=== PATIENT | male | born 1960 | race Caucasian/White ===

== ENCOUNTER 2019-08-01 05:55 | Inpatient (IN) | payer OTHER ==
[~2019-08-01] VITALS: Ht 175.3 cm; Wt 116.6 kg
[2019-08-01] MEDS ORDERED: fentaNYL PF VIAL 100 MCG/2 ML VIAL IV ONE (06:30)
[2019-08-01] MEDS ORDERED: IV NORMAL SALINE 1000ML BAG 1,000 ML IV ONE (06:30)
[2019-08-01] MEDS ORDERED: ONDANSETRON PF 4 MG/2 ML VIAL. IV ONE (06:30)
[2019-08-01 06:37] LABS: BASO # 0.1 x10^3/uL (0.0-0.2); BASO % 1 % (0-3); EOS # 0.3 x10^3/uL (0.0-0.7); EOS % 4 % (0-3); HEMATOCRIT 48.6 % (39.0-53.0); HEMOGLOBIN 17.2 g/dL (13.0-17.5); LYMPH # 1.3 x10^3/uL (1.0-4.8); LYMPH % 17 % (24-48); MEAN CORPUSCULAR HEMOGLOBIN 35 pg (25-35); MEAN CORPUSCULAR HGB CONC 35 g/dL (31-37); MEAN CORPUSCULAR VOLUME 100 fL (79-100); MONO # 0.7 x10^3/uL (0.0-1.1); MONO % 9 % (0-9); NEUT # 5.2 x10^3/uL (1.8-7.7); NEUT % 68 % (31-73); PLATELET COUNT 198 x10^3/uL (140-400); RED BLOOD COUNT 4.85 x10^6/uL (4.30-5.70); RED CELL DISTRIBUTION WIDTH 13.2 % (11.5-14.5); WHITE BLOOD COUNT 7.6 x10^3/uL (4.0-11.0)
[2019-08-01 06:38] LABS: BILIRUBIN,URINE NEGATIVE (NEG); CLARITY,URINE CLEAR; COLOR,URINE YELLOW; NITRITE,URINE NEGATIVE (NEG); PROTEIN,URINE NEGATIVE (NEG-TRACE)
[2019-08-01 06:47] LABS: BACTERIA,URINE FEW /HPF (0-FEW); RBC,URINE 0 /HPF (0-2); SQUAMOUS EPITHELIAL CELL,UR OCC /LPF; WBC,URINE OCC /HPF (0-4)
--- NOTE | 2019-08-01 06:53 | PHYS DOC ---
Past Medical History Past Medical History: GERD, Hypertension Past Surgical History: Other Additional Past Surgical Histo: 4 Colonoscopies, Left rotator cuff repair Alcohol Use: Occasionally Drug Use: None Adult General Chief Complaint Chief Complaint: CHEST PAIN-CARDIAC NATURE HPI HPI Patient is a 59 year old male presenting with chief complaint of upper abdominal pain onset about 3 hours after eating had to lay down there was a few hours still having an somewhat although it is a little better just feeling early satiety like he just can't eat he also wants to drink alcohol this weekend bec ause it is a race [employer] weekend he just does not feel like doing that that is unusual for him he drinks 4 drinks a day for times a week more on the weekends no surgeries he also feels a lump in his upper abdominal area no chest pain no chest pain with exertion Review of Systems Review of Systems Constitutional: Denies fever or chills [] Eyes: Denies change in visual acuity, redness, or eye pain [] HENT: Denies nasal congestion or sore throat [] Respiratory: Denies cough or shortness of breath [] Musculoskeletal: Denies back pain or joint pain [] Integument: Denies rash or skin lesions [] Neurologic: Denies headache, focal weakness or sensory changes [] Endocrine: Denies polyuria or polydipsia [] All other systems were reviewed and found to be within normal limits, except as documented in this note. Current Medications Current Medications Current Medications Medications (Trade) Dose Ordered Sig/[facility] Start Time Stop Time Status Last Admin Dose Admin Fentanyl Citrate (Fentanyl 2ml Vial) 50 mcg 1X ONCE 08/01/19 06:30 08/01/19 06:31 DC 08/01/19 06:47 50 MCG Ondansetron HCl (Zofran) 4 mg 1X ONCE 08/01/19 06:30 08/01/19 06:31 DC 08/01/19 06:46 4 MG Sodium Chloride 1,000 ml @ 1,000 mls/hr 1X ONCE 08/01/19 06:30 08/01/19 07:29 DC 08/01/19 06:47 1,000 MLS/HR Allergies Allergies Allergies Coded Allergies Type Severity Reaction Last Updated Verified No Known Drug Allergies 08/01/19 No Physical Exam Physical Exam Constitutional: Well developed, well nourished, no acute distress, non-toxic appearance. [] HENT: Normocephalic, atraumatic, bilateral external ears normal, oropharynx moist, no oral exudates, nose normal. [] Eyes: PERRLA, EOMI, conjunctiva normal, no discharge. [] Neck: Normal range of motion, no tenderness, supple, no stridor. [] Cardiovascular:Heart rate regular rhythm, no murmur [] Lungs & Thorax: Bilateral breath sounds clear to auscultation [] Abdomen: Bowel sounds normal, epigastric tenderness is noted mild there is a reducible ventral hernia in the epigastric area as well there is also mild right upper quadrant tenderness as well Skin: Warm, dry, no erythema, no rash. [] Back: No tenderness, no CVA tenderness. [] Extremities: No tenderness, no cyanosis, no clubbing, ROM intact, no edema. [] Neurologic: Alert and oriented X 3, normal motor function, normal sensory function, no focal deficits noted. [] Psychologic: Affect normal, judgement normal, mood normal. [] Current Patient Data Vital Signs Vital Signs Date Time Temp Pulse Resp B/P (MAP) Pulse Ox O2 Delivery O2 Flow Rate FiO2 08/01/19 10:00 92 92 Room Air 08/01/19 09:30 182/98 (126) 08/01/19 05:55 98.5 16 98.5 Lab Values Laboratory Tests Test 08/01/19 06:25 08/01/19 06:50 08/01/19 08:54 White Blood Count 7.6 x10^3/uL (4.0-11.0) Red Blood Count 4.85 x10^6/uL (4.30-5.70) Hemoglobin 17.2 g/dL (13.0-17.5) Hematocrit 48.6 % (39.0-53.0) Mean Corpuscular Volume 100 fL (79-100) Mean Corpuscular Hemoglobin 35 pg (25-35) Mean Corpuscular Hemoglobin Concent 35 g/dL (31-37) Red Cell Distribution Width 13.2 % (11.5-14.5) Platelet Count 198 x10^3/uL (140-400) Neutrophils (%) (Auto) 68 % (31-73) Lymphocytes (%) (Auto) 17 % (24-48) L Monocytes (%) (Auto) 9 % (0-9) Eosinophils (%) (Auto) 4 % (0-3) H Basophils (%) (Auto) 1 % (0-3) Neutrophils # (Auto) 5.2 x10^3/uL (1.8-7.7) Lymphocytes # (Auto) 1.3 x10^3/uL (1.0-4.8) Monocytes # (Auto) 0.7 x10^3/uL (0.0-1.1) Eosinophils # (Auto) 0.3 x10^3/uL (0.0-0.7) Basophils # (Auto) 0.1 x10^3/uL (0.0-0.2) Urine Collection Type Void Urine Color Yellow Urine Clarity Clear Urine pH 5.0 Urine Specific [place] >=1.030 Urine Protein Negative mg/dL (NEG-TRACE) Urine Glucose (UA) >=1000 mg/dL (NEG) Urine Ketones (Stick) 40 mg/dL (NEG) Urine Blood Negative (NEG) Urine Nitrite Negative (NEG) Urine Bilirubin Negative (NEG) Urine Urobilinogen Dipstick 1.0 mg/dL (0.2 mg/dL) Urine Leukocyte Esterase Negative (NEG) Urine RBC 0 /HPF (0-2) Urine WBC Occ /HPF (0-4) Urine Squamous Epithelial Cells Occ /LPF Urine Bacteria Few /HPF (0-FEW) Urine Mucus Slight /LPF Sodium Level 130 mmol/L (136-145) L Potassium Level 4.1 mmol/L (3.5-5.1) Chloride Level 96 mmol/L (98-107) L Carbon Dioxide Level 26 mmol/L (21-32) Anion Gap 8 (6-14) Blood Urea Nitrogen 13 mg/dL (8-26) Creatinine 0.7 mg/dL (0.7-1.3) Estimated GFR (Cockcroft-Gault) 115.8 BUN/Creatinine Ratio 19 (6-20) Glucose Level 254 mg/dL (70-99) H Calcium Level 9.5 mg/dL (8.5-10.1) Total Bilirubin 1.0 mg/dL (0.2-1.0) Aspartate Amino Transferase (AST) 85 U/L (15-37) H Alanine Aminotransferase (ALT) 144 U/L (16-63) H Alkaline Phosphatase 102 U/L (46-116) Troponin I Quantitative 0.037 ng/mL (0.000-0.055) 0.046 ng/mL (0.000-0.055) Total Protein 7.4 g/dL (6.4-8.2) Albumin 4.1 g/dL (3.4-5.0) Albumin/Globulin Ratio 1.2 (1.0-1.7) Lipase 101 U/L (73-393) Laboratory Tests 08/01/19 06:25 Laboratory Tests 08/01/19 06:50 EKG EKG []EKG showed a normal sinus rhythm rate of [address] changes laterally no acute ST elevation WI QTC was 430 Radiology/Procedures Radiology/Procedures [] Date of Service: 08/01/2019 10:37 AM Comparison: None available. Single AP upright portable view chest findings: Cardiomediastinal silhouette is within limits of normal. No acute infiltrates, effusion or pneumothorax is detected. The bony structures are normal. Impression: No acute cardiopulmonary process is detected. Electronically signed by: Isabel Apodaca MD (08/01/2019 11:15 AM) [facility] DICTATED and SIGNED BY: ISABEL APODACA MD DATE: 08/01/19 1115 Impressions: FINDINGS: Hepatomegaly with diffuse hepatic steatosis. The liver measures 19.0 cm in length. Gallbladder is enlarged with layering sludge. No calculi are identified. The gallbladder wall measures 2.9 mm. Right kidney is difficult to visualize and measures 12.9 cm in length. Suboptimal evaluation of the pancreas, aorta and IVC due to overlying bowel gas. No gross free fluid. IMPRESSION: Hepatomegaly with diffuse hepatic steatosis. Diffuse gallbladder/without cholelithiasis. Electronically signed by: Isabel Apodaca MD (08/01/2019 9:05 AM) [facility] DICTATED and SIGNED BY: ISABEL APODACA MD DATE: 08/01/19 0905 Course & Med Decision Making Course & Med Decision Making Pertinent Labs and Imaging studies reviewed. (See chart for details) 59-year-old male with history of hypertension and GERD, presenting with epigastric discomfort initially described as chest pain EKG was nonischemic to troponin so far are within normal range for slowly rising I think he needs a third. Ultrasound was done did show sludge and distended gallbladder with no stones still has mild tenderness in that region I consulted with Dr. Fulbright for serial troponins consideration of further right upper quadrant imaging and further evaluation. Patient is comfortable with the plan the lipase was normal patient is quite a heavy drinker overall but no obvious acute pancreatitis based on lab work. Had a easily reducible ventral hernia on clinical examination the emergency room no peritoneal signs heart score h 1 e 1 a 1 r 1 t 0 Dragon Disclaimer Dragon Disclaimer This electronic medical record was generated, in whole or in part, using a voice recognition dictation system. Departure Departure Impression: Primary Impression: Chest discomfort Disposition: ADMITTED INPATIENT Admitting Physician: ROBYN Condition: STABLE ALPHONSO DAVIS MD Aug 01, 2019 06:53
[2019-08-01 07:16] LABS: CALCIUM 9.5 mg/dL (8.5-10.1); CREATININE 0.7 mg/dL (0.7-1.3); GFR 115.8; POTASSIUM 4.1 mmol/L (3.5-5.1)
[2019-08-01 07:22] LABS: ALBUMIN 4.1 g/dL (3.4-5.0); ALBUMIN/GLOBULIN RATIO 1.2 (1.0-1.7); TOTAL PROTEIN 7.4 g/dL (6.4-8.2)
--- NOTE | 2019-08-01 09:08 | RAD ---
Exam performed: Right upper quadrant abdominal ultrasound. HISTORY: Right upper quadrant pain, cholecystitis. DATE OF SERVICE: 08/01/2019. COMPARISON: None available TECHNIQUE: Transabdominal. FINDINGS: Hepatomegaly with diffuse hepatic steatosis. The liver measures 19.0 cm in length. Gallbladder is enlarged with layering sludge. No calculi are identified. The gallbladder wall measures 2.9 mm. Right kidney is difficult to visualize and measures 12.9 cm in length. Suboptimal evaluation of the pancreas, aorta and IVC due to overlying bowel gas. No gross free fluid. IMPRESSION: Hepatomegaly with diffuse hepatic steatosis. Diffuse gallbladder/without cholelithiasis. Electronically signed by: Isabel Apodaca MD (08/01/2019 9:05 AM) [facility]
[2019-08-01] MEDS ORDERED: IV NORMAL SALINE 1000ML BAG 1,000 ML IV SCH (10:09)
[2019-08-01] MEDS ORDERED: MORPHINE SULFATE 4 MG/ML VIAL. IV PRN (10:15)
--- NOTE | 2019-08-01 10:29 | EKG ---
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
--- NOTE | 2019-08-01 10:43 | PDOC1 ---
History and Physical Date of Admission Date of Admission DATE: 08/01/19 TIME: 10:34 Identification/Chief Complaint Chief Complaint SEEN IN er 59 year old male presenting with chief complaint of upper abdominal pain onset about 3 hours after eating had to lay down there was a few hours still having an somewhat although it is a little better just feeling early satiety like he just can't eat he also wants to drink alcohol this weekend because it is a race [employer] weekend he just does not feel like doing that that is unusual for him he drinks 4 drinks a day 4 times a week more on the weekends ate cod, onion rings last night, had discomfort x 4 hrs during the night SONO C/W GB sludge and troponin i neg x 2 Past Medical History Past Medical History Past Medical History Past Medical History: GERD, Hypertension Past Surgical History: Other Additional Past Surgical Histo: 4 Colonoscopies, Left rotator cuff repair Alcohol Use: Occasionally Drug Use: None remote tobacco Retired from [employer], lives [place] [facility] Cardiovascular: Hyperlipidemia Endocrine: Diabetes Family History Family History: Hypertension Social History Smoke: Quit ALCOHOL: social Drugs: None Current Medications Current Medications Current Medications Sodium Chloride 1,000 ml @ 1,000 mls/hr 1X ONCE IV Last administered on 08/01/19at 06:47; Start 08/01/19 at 06:30; Stop 08/01/19 at 07:29; Status DC Ondansetron HCl (Zofran) 4 mg 1X ONCE IV Last administered on 08/01/19at 06:46; Start 08/01/19 at 06:30; Stop 08/01/19 at 06:31; Status DC Fentanyl Citrate (Fentanyl 2ml Vial) 50 mcg 1X ONCE IV Last administered on 1 at 06:47; Start 08/01/19 at 06:30; Stop 08/01/19 at 06:31; Status DC Morphine Sulfate (Morphine Sulfate) 4 mg PRN Q2HR PRN IV PAIN; Start 08/01/19 at 10:15; Stop 08/02/19 at 10:14 Sodium Chloride 1,000 ml @ 75 mls/hr [id number] IV ; Start 08/01/19 at 10:09; Stop 08/02/19 at 10:08 Allergies Allergies: Coded Allergies: No Known Drug Allergies (Unverified , 08/01/19) ROS Review of System Review of Systems Review of Systems Constitutional: Denies fever or chills [] Eyes: Denies change in visual acuity, redness, or eye pain [] HENT: Denies nasal congestion or sore throat [] Respiratory: Denies cough or shortness of breath [] Musculoskeletal: Denies back pain or joint pain [] Integument: Denies rash or skin lesions [] Neurologic: Denies headache, focal weakness or sensory changes [] Endocrine: Denies polyuria or polydipsia [] 14 pt systems were reviewed and found to be within normal limits, except as documented PSYCHOLOGICAL ROS: No: Anxiety, Behavioral Disorder, Concentration difficultie, Decreased libido, Depression, Disorientation, Hallucinations, Hostility, Irritablity, Memory difficulties, Mood Swings, Obsessive thoughts, Physical abuse, Sexual abuse, Sleep disturbances, Suicidal ideation, Other Hematological and Lymphatic: No: Bleeding Problems, Blood Clots, Blood Transfusions, Brusing, Night Sweats, Pallor, Swollen Lymph Nodes, Other Respiratory: No: Cough, Hemoptysis, Orthopnea, Pleuritic Pain, Shortness of breath, SOB with excertion, Sputum Changes, Stridor, Tachypnea, Wheezing, Other Cardiovascular: yes Chest Pain; No Palpitations, No Orthopnea, No Paroxysmal Noc. Dyspnea, No Edema, No Lt Headedness, No Other Gastrointestinal: Yes Other (epigastric discomfort) Physical Exam Physical Exam Physical Exam Physical Exam Constitutional: Well developed, well nourished, no acute distress, non-toxic appearance. [] HENT: Normocephalic, atraumatic, bilateral external ears normal, oropharynx moist, no oral exudates, nose normal. [] Eyes: PERRLA, EOMI, conjunctiva normal, no discharge. [] Neck: Normal range of motion, no tenderness, supple, no stridor. [] Cardiovascular:Heart rate regular rhythm, no murmur [] Lungs & Thorax: Bilateral breath sounds clear to auscultation [] Abdomen: Bowel sounds normal, epigastric tenderness is noted mild there is a reducible ventral hernia in the epigastric area as well Skin: Warm, dry, no erythema, no rash. [] Back: No tenderness, no CVA tenderness. [] Extremities: No tenderness, no cyanosis, no clubbing, ROM intact, no edema. [] Neurologic: Alert and oriented X 3, normal motor function, normal sensory function, no focal deficits noted. [] Psychologic: Affect normal, judgement normal, mood normal. [] General: Alert, Oriented X3, Cooperative, No acute distress HEENT: Atraumatic, EOMI, Mucous membr. moist/pink Lungs: Clear to auscultation, Normal air movement Heart: RRR, no thrills, no gallops, no murmurs Abdomen: Normal bowel sounds, Soft, Other (obese) Rectal Exam: not examined PELVIC: Examination not indicated Extremities: No cyanosis Neuro: Normal speech, Cranial nerves 3-12 NL Psych/Mental Status: Mental status NL, Mood NL Vitals Vitals Vital Signs Date Time Temp Pulse Resp B/P (MAP) Pulse Ox O2 Delivery O2 Flow Rate FiO2 08/01/19 09:30 86 182/98 (126) 96 Room Air 08/01/19 05:55 98.5 16 98.5 Labs Labs Laboratory Tests Test 08/01/19 06:25 08/01/19 06:50 08/01/19 08:54 White Blood Count 7.6 x10^3/uL (4.0-11.0) Red Blood Count 4.85 x10^6/uL (4.30-5.70) Hemoglobin 17.2 g/dL (13.0-17.5) Hematocrit 48.6 % (39.0-53.0) Mean Corpuscular Volume 100 fL (79-100) Mean Corpuscular Hemoglobin 35 pg (25-35) Mean Corpuscular Hemoglobin Concent 35 g/dL (31-37) Red Cell Distribution Width 13.2 % (11.5-14.5) Platelet Count 198 x10^3/uL (140-400) Neutrophils (%) (Auto) 68 % (31-73) Lymphocytes (%) (Auto) 17 % (24-48) Monocytes (%) (Auto) 9 % (0-9) Eosinophils (%) (Auto) 4 % (0-3) Basophils (%) (Auto) 1 % (0-3) Neutrophils # (Auto) 5.2 x10^3/uL (1.8-7.7) Lymphocytes # (Auto) 1.3 x10^3/uL (1.0-4.8) Monocytes # (Auto) 0.7 x10^3/uL (0.0-1.1) Eosinophils # (Auto) 0.3 x10^3/uL (0.0-0.7) Basophils # (Auto) 0.1 x10^3/uL (0.0-0.2) Urine Collection Type Void Urine Color Yellow Urine Clarity Clear Urine pH 5.0 Urine Specific [place] >=1.030 Urine Protein Negative mg/dL (NEG-TRACE) Urine Glucose (UA) >=1000 mg/dL (NEG) Urine Ketones (Stick) 40 mg/dL (NEG) Urine Blood Negative (NEG) Urine Nitrite Negative (NEG) Urine Bilirubin Negative (NEG) Urine Urobilinogen Dipstick 1.0 mg/dL (0.2 mg/dL) Urine Leukocyte Esterase Negative (NEG) Urine RBC 0 /HPF (0-2) Urine WBC Occ /HPF (0-4) Urine Squamous Epithelial Cells Occ /LPF Urine Bacteria Few /HPF (0-FEW) Urine Mucus Slight /LPF Sodium Level 130 mmol/L (136-145) Potassium Level 4.1 mmol/L (3.5-5.1) Chloride Level 96 mmol/L (98-107) Carbon Dioxide Level 26 mmol/L (21-32) Anion Gap 8 (6-14) Blood Urea Nitrogen 13 mg/dL (8-26) Creatinine 0.7 mg/dL (0.7-1.3) Estimated GFR (Cockcroft-Gault) 115.8 BUN/Creatinine Ratio 19 (6-20) Glucose Level 254 mg/dL (70-99) Calcium Level 9.5 mg/dL (8.5-10.1) Total Bilirubin 1.0 mg/dL (0.2-1.0) Aspartate Amino Transf (AST/SGOT) 85 U/L (15-37) Alanine Aminotransferase (ALT/SGPT) 144 U/L (16-63) Alkaline Phosphatase 102 U/L (46-116) Troponin I Quantitative 0.037 ng/mL (0.000-0.055) 0.046 ng/mL (0.000-0.055) Total Protein 7.4 g/dL (6.4-8.2) Albumin 4.1 g/dL (3.4-5.0) Albumin/Globulin Ratio 1.2 (1.0-1.7) Lipase 101 U/L (73-393) Laboratory Tests Test 08/01/19 06:25 08/01/19 06:50 08/01/19 08:54 White Blood Count 7.6 x10^3/uL (4.0-11.0) Red Blood Count 4.85 x10^6/uL (4.30-5.70) Hemoglobin 17.2 g/dL (13.0-17.5) Hematocrit 48.6 % (39.0-53.0) Mean Corpuscular Volume 100 fL (79-100) Mean Corpuscular Hemoglobin 35 pg (25-35) Mean Corpuscular Hemoglobin Concent 35 g/dL (31-37) Red Cell Distribution Width 13.2 % (11.5-14.5) Platelet Count 198 x10^3/uL (140-400) Neutrophils (%) (Auto) 68 % (31-73) Lymphocytes (%) (Auto) 17 % (24-48) Monocytes (%) (Auto) 9 % (0-9) Eosinophils (%) (Auto) 4 % (0-3) Basophils (%) (Auto) 1 % (0-3) Neutrophils # (Auto) 5.2 x10^3/uL (1.8-7.7) Lymphocytes # (Auto) 1.3 x10^3/uL (1.0-4.8) Monocytes # (Auto) 0.7 x10^3/uL (0.0-1.1) Eosinophils # (Auto) 0.3 x10^3/uL (0.0-0.7) Basophils # (Auto) 0.1 x10^3/uL (0.0-0.2) Urine Collection Type Void Urine Color Yellow Urine Clarity Clear Urine pH 5.0 Urine Specific [place] >=1.030 Urine Protein Negative mg/dL (NEG-TRACE) Urine Glucose (UA) >=1000 mg/dL (NEG) Urine Ketones (Stick) 40 mg/dL (NEG) Urine Blood Negative (NEG) Urine Nitrite Negative (NEG) Urine Bilirubin Negative (NEG) Urine Urobilinogen Dipstick 1.0 mg/dL (0.2 mg/dL) Urine Leukocyte Esterase Negative (NEG) Urine RBC 0 /HPF (0-2) Urine WBC Occ /HPF (0-4) Urine Squamous Epithelial Cells Occ /LPF Urine Bacteria Few /HPF (0-FEW) Urine Mucus Slight /LPF Sodium Level 130 mmol/L (136-145) Potassium Level 4.1 mmol/L (3.5-5.1) Chloride Level 96 mmol/L (98-107) Carbon Dioxide Level 26 mmol/L (21-32) Anion Gap 8 (6-14) Blood Urea Nitrogen 13 mg/dL (8-26) Creatinine 0.7 mg/dL (0.7-1.3) Estimated GFR (Cockcroft-Gault) 115.8 BUN/Creatinine Ratio 19 (6-20) Glucose Level 254 mg/dL (70-99) Calcium Level 9.5 mg/dL (8.5-10.1) Total Bilirubin 1.0 mg/dL (0.2-1.0) Aspartate Amino Transf (AST/SGOT) 85 U/L (15-37) Alanine Aminotransferase (ALT/SGPT) 144 U/L (16-63) Alkaline Phosphatase 102 U/L (46-116) Troponin I Quantitative 0.037 ng/mL (0.000-0.055) 0.046 ng/mL (0.000-0.055) Total Protein 7.4 g/dL (6.4-8.2) Albumin 4.1 g/dL (3.4-5.0) Albumin/Globulin Ratio 1.2 (1.0-1.7) Lipase 101 U/L (73-393) Images Images HISTORY: Right upper quadrant pain, cholecystitis. DATE OF SERVICE: 08/01/2019. COMPARISON: None available TECHNIQUE: Transabdominal. FINDINGS: Hepatomegaly with diffuse hepatic steatosis. The liver measures 19.0 cm in length. Gallbladder is enlarged with layering sludge. No calculi are identified. The gallbladder wall measures 2.9 mm. Right kidney is difficult to visualize and measures 12.9 cm in length. Suboptimal evaluation of the pancreas, aorta and IVC due to overlying bowel gas. No gross free fluid. IMPRESSION: Hepatomegaly with diffuse hepatic steatosis. Diffuse gallbladder/without cholelithiasis. Electronically signed by: Isabel Apodaca MD (08/01/2019 9:05 AM) [facility] VTE Prophylaxis Ordered VTE Prophylaxis Devices: Yes VTE Pharmacological Prophylaxi: Yes Assessment/Plan Assessment/Plan IMPRESSION: EPIGASTRIC/ chest discomfort Hepatomegaly with diffuse hepatic steatosis. Diffuse gallbladder/without cholelithiasis. Morbid obesity POSSIBLE GERD DIABETES alcohol abuse mild hyponatremia plan admit consult cardiology consult general surgery tele serial troponin i gi prophylaxis NPO IV FLUID SUPPORT ACCUCHECKS alcohol withdrawal precautions 56 min pt exam, chart review , > 50% of time spent with exam, chart review, pt care coordination ELVA DOUGLAS MD Aug 01, 2019 10:43
[2019-08-01] MEDS ORDERED: MAG HYDROX/ALUMINUM HYD/SIMETH 30 ML ORAL.SUSP PO PRN (10:45)
[2019-08-01] MEDS ORDERED: ONDANSETRON PF 4 MG/2 ML VIAL. IV PRN (10:45)
[2019-08-01] MEDS ORDERED: guaiFENesin ORAL 200 MG/10 ML LIQUID. PO PRN (10:45)
[2019-08-01] MEDS ORDERED: DOCUSATE SODIUM 100 MG CAPSULE. PO PRN (10:45)
[2019-08-01] MEDS ORDERED: ALBUTEROL SULFATE 2.5 MG/3 ML NEBU. NEB PRN (10:45)
[2019-08-01] MEDS ORDERED: 0.9 % SODIUM CHLORIDE 10 ML DISP.SYRIN. IV PRN (10:45)
[2019-08-01] MEDS ORDERED: ZOLPIDEM 5 MG TABLET. PO PRN (10:45)
[2019-08-01] MEDS ORDERED: ACETAMINOPHEN 325 MG TABLET. PO PRN (10:45)
[2019-08-01] MEDS ORDERED: cloNIDine HCL 0.1 MG TABLET PO PRN (10:45)
[2019-08-01 11:00] VITALS: BP 161/94
[2019-08-01] MEDS ORDERED: PANTOPRAZOLE IV PUSH 40 MG VIAL. IVP SCH (11:00)
--- NOTE | 2019-08-01 11:18 | RAD ---
Exam performed: One view chest. Indication: Discomfort Date of Service: 08/01/2019 10:37 AM Comparison: None available. Single AP upright portable view chest findings: Cardiomediastinal silhouette is within limits of normal. No acute infiltrates, effusion or pneumothorax is detected. The bony structures are normal. Impression: No acute cardiopulmonary process is detected. Electronically signed by: Isabel Apodaca MD (08/01/2019 11:15 AM) [facility] [place]
[2019-08-01] MEDS: IV NORMAL SALINE 1000ML BAG 1,000 ML IV SCH ×2 (11:31→21:18)
[2019-08-01] MEDS: ENOXAPARIN 40 MG/0.4 ML SYRINGE. SQ SCH (11:32)
[2019-08-01] MEDS ORDERED: METO-247 PO (13:26)
[2019-08-01] MEDS ORDERED: BENA40TA3 PO (13:26)
[2019-08-01] MEDS ORDERED: DEXTROSE 50% 25 GM / 50ML DISP.SYRIN. IV PRN (13:30)
[2019-08-01] MEDS: METOPROLOL SUCC 24HR ER 100 MG TAB.ER.24H. PO SCH (14:10)
--- NOTE | 2019-08-01 14:59 | RAD ---
Exam performed: CT scan of the abdomen and pelvis without contrast. Clinical Indication: Epigastric pain. Date of Service: 08/01/2019 comparison: Abdominal ultrasound from earlier today Technique: Contiguous helical acquisitions are obtained through the abdomen and pelvis without IV contrast. Sagittal and coronal reformatted images are obtained and reviewed. CT abdomen and pelvis findings: The lung bases are essentially clear. Visualized heart is normal. Atheromatous coronary calcification Lack of IV contrast limits evaluation of abdominal viscera. Hepatomegaly with diffuse hepatic steatosis. The gallbladder is distended. There are calcified calculi in the neck of the gallbladder. Note is made that no calculi by report. Present on a recent ultrasound perhaps secondary to limitation of ultrasound due to overlying bowel gas with limited evaluation of the region of neck of gallbladder suggesting inflammatory changes surrounding the neck of gallbladder. Mild splenomegaly. Pancreas appears grossly normal Both adrenal glands and bilateral kidneys are normal in size without hydronephrosis or nephrolithiasis. Aorta is normal in caliber without aneurysm. The small and large bowel loops are nondilated and unremarkable. The appendix is not clearly seen Distal ureters are nondilated. Urinary bladder is unremarkable. [Prostate gland, seminal vesicles and rectum are normal.] No free or focal fluid collections are identified. Impression: Cholelithiasis in the neck of gallbladder with suggested inflammatory changes surrounding the region of neck of gallbladder. Note is made that this is not clearly seen on recent ultrasound due to reasons mentioned above. Diffuse hepatic steatosis with hepatomegaly. Mild splenomegaly PQRS Compliance Statement: One or more of the following individualized dose reduction techniques were utilized for this examination: 1. Automated exposure control 2. Adjustment of the mA and/or kV according to patient size 3. Use of iterative reconstruction technique Electronically signed by: Isabel Apodaca MD (08/01/2019 2:55 PM) [facility]
--- NOTE | 2019-08-01 15:07 | PDOC2 ---
CARDIOLOGY CONSULT NOTE CHEIF COMPLAINT: Epigastric pain HPI: Pleasant 59 y.o man came to the hospital for mid abdominal discomfort. Denies any angina. He ate some greasy food and had what appears to be either biliary disease or pancreatitis type pain. He has had pain of GERD in the past and feels like this is not that pain. He had similar abdominal pain about 2 days ago and lost his appetite. He has no exertional angina, dyspnea, orthopnea or PND. No edema. He has a remote history of non-obstructive CAD on cath several years ago and has been treated with med tx. His last stress 4 yrs ago was wnl. Otherwise he is highly functional. PMHX: CAD HTN DM2 DLP - intolerant to statins. SOCHX: no smoking. Drinks socially No illicits Retired. FAMHX: +CAD CURRENT MEDS: Current Medications Medications (Trade) Dose Ordered Sig/Belkis Route PRN Reason Start Time Stop Time Status Last Admin Dose Admin Sodium Chloride 1,000 ml @ 1,000 mls/hr 1X ONCE IV 08/01/19 06:30 08/01/19 07:29 DC 08/01/19 06:47 Ondansetron HCl (Zofran) 4 mg 1X ONCE IV 08/01/19 06:30 08/01/19 06:31 DC 08/01/19 06:46 Fentanyl Citrate (Fentanyl 2ml Vial) 50 mcg 1X ONCE IV 08/01/19 06:30 08/01/19 06:31 DC 08/01/19 06:47 Sodium Chloride 1,000 ml @ 100 mls/hr Q10H IV 08/01/19 10:37 08/01/19 11:31 Enoxaparin Sodium (Lovenox 40mg Syringe) 40 mg DAILY SQ 08/01/19 11:00 08/01/19 11:32 Pantoprazole Sodium (PROTONIX VIAL for IV PUSH) 40 mg DAILYAC IVP 08/01/19 11:00 08/01/19 11:31 Metoprolol Succinate (Toprol Xl) 100 mg DAILY PO 08/01/19 14:00 08/01/19 14:10 Lorazepam (Ativan Inj) 0.5 mg PRN Q8HRS PRN IVP ANXIETY / AGITATION 08/01/19 14:30 08/01/19 14:27 ALLERGIES: Allergies Coded Allergies Type Severity Reaction Last Updated Verified No Known Drug Allergies 08/01/19 No ROS: negative for 07/27 systems reviewed unless otherwise noted above in HPI PHYSICAL EXAM: Vital Signs/I&O: Vital Signs Date Time Temp Pulse Resp B/P (MAP) Pulse Ox O2 Delivery O2 Flow Rate FiO2 08/01/19 14:10 79 161/94 08/01/19 12:07 96 Room Air 08/01/19 11:00 98.8 16 98.8 Physical Exam: GEN.: No apparent distress. Alert and oriented. HEENT: Head is normocephalic, atraumatic NECK: Supple. LUNGS: Clear to auscultation. HEART: RRR, S1, S2 present. Peripheral pulses intact ABDOMEN: Soft,mild mid abd tenderness. No rebound or gaurding EXTREMITIES: Without any cyanosis. NEUROLOGIC: Normal speech, normal tone PSYCHIATRIC: Normal affect, normal mood. SKIN: No ulcerations DIAGNOSTIC TESTING: Trop negative x 2 EKG unremarkable for acute findings. CT pending ASSESSMENT: 1. Non-cardiac chest pain (symptoms, EKG, labs not consistent with any cardiac issues) 2. HTN 3. DM2 4. Abdominal pain - eval ongoing PLAN: 1. No further CV recs. Ok to DC from our standpoint. F/u with PCP and primary senior product analyst in [facility]. Pls call with questions. ZENY JUSTICE MD Aug 01, 2019 15:06
[2019-08-01 15:14] VITALS: BP 154/94
[2019-08-01] MEDS: INSULIN LISPRO 300 UNITS/3 ML VIAL. SQ SCH (17:00)
[2019-08-01 19:25] VITALS: BP 154/92
[2019-08-01] MEDS: LISINOPRIL 20 MG TABLET PO SCH (21:17)
[2019-08-01 23:45] VITALS: BP 97/54
[2019-08-02 03:15] VITALS: BP 110/64
[2019-08-02 04:42] LABS: BASO % 1 % (0-3); EOS # 0.4 x10^3/uL (0.0-0.7); EOS % 8 % (0-3); HEMATOCRIT 45.1 % (39.0-53.0); HEMOGLOBIN 15.3 g/dL (13.0-17.5); LYMPH # 1.8 x10^3/uL (1.0-4.8); LYMPH % 35 % (24-48); MEAN CORPUSCULAR HEMOGLOBIN 34 pg (25-35); MEAN CORPUSCULAR HGB CONC 34 g/dL (31-37); MEAN CORPUSCULAR VOLUME 102 fL (79-100); MONO # 0.6 x10^3/uL (0.0-1.1); MONO % 13 % (0-9); NEUT # 2.2 x10^3/uL (1.8-7.7); NEUT % 43 % (31-73); PLATELET COUNT 129 x10^3/uL (140-400); RED BLOOD COUNT 4.44 x10^6/uL (4.30-5.70); RED CELL DISTRIBUTION WIDTH 13.1 % (11.5-14.5)
[2019-08-02 05:00] LABS: ALBUMIN 3.2 g/dL (3.4-5.0); ALBUMIN/GLOBULIN RATIO 0.9 (1.0-1.7); CALCIUM 8.7 mg/dL (8.5-10.1); CREATININE 0.8 mg/dL (0.7-1.3); GFR 99.3; POTASSIUM 4.2 mmol/L (3.5-5.1); TOTAL BILIRUBIN 0.8 mg/dL (0.2-1.0); TOTAL PROTEIN 6.7 g/dL (6.4-8.2)
[2019-08-02] MEDS: IV NORMAL SALINE 1000ML BAG 1,000 ML IV SCH (06:37)
[2019-08-02 07:00] VITALS: BP 147/82
[2019-08-02] MEDS: ENOXAPARIN 40 MG/0.4 ML SYRINGE. SQ SCH (09:00)
--- NOTE | 2019-08-02 09:20 | NUR ---
Pgd GI and surgery consults regarding ok to dc. Both gave ok to discharge as patient lives out of town and would rather have workup/surgery at home sine it is none emergent
--- NOTE | 2019-08-02 09:27 | PDOC3 ---
Discharge Summary Visit Information Date of Admission: Aug 01, 2019 Date of Discharge: Aug 02, 2019 Admitting Diagnosis: acute abd pain Final Diagnosis Cholelithiasis in the neck of gallbladder with suggested inflammatory changes surrounding the region of neck of gallbladder. Note is made that this is not clearly seen on recent ultrasound due to reasons mentioned above. Diffuse hepatic steatosis with hepatomegaly. EtOH abuse obesity, BMI 38 Mild splenomegaly Brief Hospital Course Allergies Allergies Coded Allergies Type Severity Reaction Last Updated Verified No Known Drug Allergies 08/01/19 No Vital Signs Vital Signs Date Time Temp Pulse Resp B/P (MAP) Pulse Ox O2 Delivery O2 Flow Rate FiO2 08/02/19 07:00 97.9 60 18 147/82 (103) 96 Room Air 97.9 Lab Results Laboratory Tests Test 08/01/19 06:25 08/01/19 06:50 08/01/19 08:54 08/01/19 11:45 White Blood Count 7.6 x10^3/uL (4.0-11.0) Red Blood Count 4.85 x10^6/uL (4.30-5.70) Hemoglobin 17.2 g/dL (13.0-17.5) Hematocrit 48.6 % (39.0-53.0) Mean Corpuscular Volume 100 fL (79-100) Mean Corpuscular Hemoglobin 35 pg (25-35) Mean Corpuscular Hemoglobin Concent 35 g/dL (31-37) Red Cell Distribution Width 13.2 % (11.5-14.5) Platelet Count 198 x10^3/uL (140-400) Neutrophils (%) (Auto) 68 % (31-73) Lymphocytes (%) (Auto) 17 % (24-48) Monocytes (%) (Auto) 9 % (0-9) Eosinophils (%) (Auto) 4 % (0-3) Basophils (%) (Auto) 1 % (0-3) Neutrophils # (Auto) 5.2 x10^3/uL (1.8-7.7) Lymphocytes # (Auto) 1.3 x10^3/uL (1.0-4.8) Monocytes # (Auto) 0.7 x10^3/uL (0.0-1.1) Eosinophils # (Auto) 0.3 x10^3/uL (0.0-0.7) Basophils # (Auto) 0.1 x10^3/uL (0.0-0.2) Urine Collection Type Void Urine Color Yellow Urine Clarity Clear Urine pH 5.0 Urine Specific Buchanan >=1.030 Urine Protein Negative mg/dL (NEG-TRACE) Urine Glucose (UA) >=1000 mg/dL (NEG) Urine Ketones (Stick) 40 mg/dL (NEG) Urine Blood Negative (NEG) Urine Nitrite Negative (NEG) Urine Bilirubin Negative (NEG) Urine Urobilinogen Dipstick 1.0 mg/dL (0.2 mg/dL) Urine Leukocyte Esterase Negative (NEG) Urine RBC 0 /HPF (0-2) Urine WBC Occ /HPF (0-4) Urine Squamous Epithelial Cells Occ /LPF Urine Bacteria Few /HPF (0-FEW) Urine Mucus Slight /LPF Sodium Level 130 mmol/L (136-145) Potassium Level 4.1 mmol/L (3.5-5.1) Chloride Level 96 mmol/L (98-107) Carbon Dioxide Level 26 mmol/L (21-32) Anion Gap 8 (6-14) Blood Urea Nitrogen 13 mg/dL (8-26) Creatinine 0.7 mg/dL (0.7-1.3) Estimated GFR (Cockcroft-Gault) 115.8 BUN/Creatinine Ratio 19 (6-20) Glucose Level 254 mg/dL (70-99) Calcium Level 9.5 mg/dL (8.5-10.1) Total Bilirubin 1.0 mg/dL (0.2-1.0) Aspartate Amino Transf (AST/SGOT) 85 U/L (15-37) Alanine Aminotransferase (ALT/SGPT) 144 U/L (16-63) Alkaline Phosphatase 102 U/L (46-116) Troponin I Quantitative 0.037 ng/mL (0.000-0.055) 0.046 ng/mL (0.000-0.055) Total Protein 7.4 g/dL (6.4-8.2) Albumin 4.1 g/dL (3.4-5.0) Albumin/Globulin Ratio 1.2 (1.0-1.7) Lipase 101 U/L (73-393) Glucose (Fingerstick) 194 mg/dL (70-99) Test 08/01/19 13:30 08/01/19 16:16 08/01/19 17:19 08/01/19 20:45 Troponin I Quantitative 0.042 ng/mL (0.000-0.055) 0.053 ng/mL (0.000-0.055) Glucose (Fingerstick) 163 mg/dL (70-99) 189 mg/dL (70-99) Test 08/02/19 04:00 08/02/19 05:00 08/02/19 08:12 White Blood Count 5.0 x10^3/uL (4.0-11.0) Red Blood Count 4.44 x10^6/uL (4.30-5.70) Hemoglobin 15.3 g/dL (13.0-17.5) Hematocrit 45.1 % (39.0-53.0) Mean Corpuscular Volume 102 fL (79-100) Mean Corpuscular Hemoglobin 34 pg (25-35) Mean Corpuscular Hemoglobin Concent 34 g/dL (31-37) Red Cell Distribution Width 13.1 % (11.5-14.5) Platelet Count 129 x10^3/uL (140-400) Neutrophils (%) (Auto) 43 % (31-73) Lymphocytes (%) (Auto) 35 % (24-48) Monocytes (%) (Auto) 13 % (0-9) Eosinophils (%) (Auto) 8 % (0-3) Basophils (%) (Auto) 1 % (0-3) Neutrophils # (Auto) 2.2 x10^3/uL (1.8-7.7) Lymphocytes # (Auto) 1.8 x10^3/uL (1.0-4.8) Monocytes # (Auto) 0.6 x10^3/uL (0.0-1.1) Eosinophils # (Auto) 0.4 x10^3/uL (0.0-0.7) Basophils # (Auto) 0.0 x10^3/uL (0.0-0.2) Sodium Level 136 mmol/L (136-145) Potassium Level 4.2 mmol/L (3.5-5.1) Chloride Level 102 mmol/L (98-107) Carbon Dioxide Level 32 mmol/L (21-32) Anion Gap 2 (6-14) Blood Urea Nitrogen 10 mg/dL (8-26) Creatinine 0.8 mg/dL (0.7-1.3) Estimated GFR (Cockcroft-Gault) 99.3 BUN/Creatinine Ratio 13 (6-20) Glucose Level 173 mg/dL (70-99) Calcium Level 8.7 mg/dL (8.5-10.1) Total Bilirubin 0.8 mg/dL (0.2-1.0) Aspartate Amino Transf (AST/SGOT) 66 U/L (15-37) Alanine Aminotransferase (ALT/SGPT) 112 U/L (16-63) Alkaline Phosphatase 73 U/L (46-116) Total Protein 6.7 g/dL (6.4-8.2) Albumin 3.2 g/dL (3.4-5.0) Albumin/Globulin Ratio 0.9 (1.0-1.7) Glucose (Fingerstick) 160 mg/dL (70-99) Laboratory Tests Test 08/01/19 11:45 08/01/19 13:30 08/01/19 16:16 08/01/19 17:19 Glucose (Fingerstick) 194 mg/dL (70-99) 163 mg/dL (70-99) Troponin I Quantitative 0.042 ng/mL (0.000-0.055) 0.053 ng/mL (0.000-0.055) Test 08/01/19 20:45 08/02/19 04:00 08/02/19 05:00 08/02/19 08:12 Glucose (Fingerstick) 189 mg/dL (70-99) 160 mg/dL (70-99) White Blood Count 5.0 x10^3/uL (4.0-11.0) Red Blood Count 4.44 x10^6/uL (4.30-5.70) Hemoglobin 15.3 g/dL (13.0-17.5) Hematocrit 45.1 % (39.0-53.0) Mean Corpuscular Volume 102 fL (79-100) Mean Corpuscular Hemoglobin 34 pg (25-35) Mean Corpuscular Hemoglobin Concent 34 g/dL (31-37) Red Cell Distribution Width 13.1 % (11.5-14.5) Platelet Count 129 x10^3/uL (140-400) Neutrophils (%) (Auto) 43 % (31-73) Lymphocytes (%) (Auto) 35 % (24-48) Monocytes (%) (Auto) 13 % (0-9) Eosinophils (%) (Auto) 8 % (0-3) Basophils (%) (Auto) 1 % (0-3) Neutrophils # (Auto) 2.2 x10^3/uL (1.8-7.7) Lymphocytes # (Auto) 1.8 x10^3/uL (1.0-4.8) Monocytes # (Auto) 0.6 x10^3/uL (0.0-1.1) Eosinophils # (Auto) 0.4 x10^3/uL (0.0-0.7) Basophils # (Auto) 0.0 x10^3/uL (0.0-0.2) Sodium Level 136 mmol/L (136-145) Potassium Level 4.2 mmol/L (3.5-5.1) Chloride Level 102 mmol/L (98-107) Carbon Dioxide Level 32 mmol/L (21-32) Anion Gap 2 (6-14) Blood Urea Nitrogen 10 mg/dL (8-26) Creatinine 0.8 mg/dL (0.7-1.3) Estimated GFR (Cockcroft-Gault) 99.3 BUN/Creatinine Ratio 13 (6-20) Glucose Level 173 mg/dL (70-99) Calcium Level 8.7 mg/dL (8.5-10.1) Total Bilirubin 0.8 mg/dL (0.2-1.0) Aspartate Amino Transf (AST/SGOT) 66 U/L (15-37) Alanine Aminotransferase (ALT/SGPT) 112 U/L (16-63) Alkaline Phosphatase 73 U/L (46-116) Total Protein 6.7 g/dL (6.4-8.2) Albumin 3.2 g/dL (3.4-5.0) Albumin/Globulin Ratio 0.9 (1.0-1.7) Brief Hospital Course Mr. Reina is a 59 old male, admit with acute abd pain, had similar pain 3 days before, then had felt better, with diet mods, then traveled here from [place] and had a very fatty meal, fried food and then was severe pain < 1 hour later, admit severe RUQ pain, US showed GB sludge and stones in neck of GB. then clear liquid diet here, and pain gone. he wanted to leave AM of 10.20, he was only in town for the [employer] race, and wanted to see that and return to [place], f/u with his doctor, would benefit from cholecystectomy, he does not want it here. EtOH use heavy, I recommeneded cessation, and weight loss and exercise. Discharge Information Condition at Discharge: Improved Follow Up: Weeks Disposition/Orders: D/C to Home Scheduled Benazepril Hcl (Benazepril Hcl) 40 Mg Tablet, 1 TAB PO BID for htn, #30 Ref 5 (Reported) Entered as Reported by: ASCENCION MAJANO on 08/01/191325 Last Taken: Unknown Dose on Unknown Date & Time Last Action: Converted on 08/01/191328 by ASCENCION MAJANO Metoprolol Succinate (Metoprolol Succinate ( Xl )) 100 Mg Tab.er.24h, 1 TAB PO DAILY for htn, #30 Ref 5 (Reported) Entered as Reported by: ASCENCION MAJANO on 08/01/191325 Last Taken: Unknown Dose on Unknown Date & Time Last Action: Continued on 08/01/191328 by ASCENCION MAJANO Patient Instructions Patient Instructions > 30 min face to face and counseled on lifestyle TITO Sun MD Aug 02, 2019 09:27
[2019-08-02] MEDS: INSULIN LISPRO 300 UNITS/3 ML VIAL. SQ SCH (09:34)
[2019-08-02] MEDS: METOPROLOL SUCC 24HR ER 100 MG TAB.ER.24H. PO SCH (09:41)
[2019-08-02 09:42] VITALS: BP 147/82
[2019-08-02] MEDS: LISINOPRIL 20 MG TABLET PO SCH (09:42)
--- NOTE | 2019-08-02 10:43 | NUR ---
Discharge Note: FRAN MCKEON Discharge instructions and discharge home medications reviewed with Patient and a copy given. All questions have been answered and understanding verbalized. The following instructions and handouts were given: discharge instructions, cholelithiasis education Discontinued lines and drains: IV discontinued, dressing clean, dry and intact. Patient discharged to home with friend via ambulation
== END 2019-08-02 10:40 | disposition home or self-care (01) | DRG 445 ==
LOC: ER 05:55 → 2 NORTH 10:05
PROVIDERS: ADMIT Family Medicine; ATTEND Family Medicine
DX: K80.20 Calculus of gallbladder without cholecystitis without obstruction (principal); E87.1 Hypo-osmolality and hyponatremia; I10 Essential (primary) hypertension; K21.9 Gastro-esophageal reflux disease without esophagitis; E78.5 Hyperlipidemia, unspecified; E11.9 Type 2 diabetes mellitus without complications; E66.01 Morbid (severe) obesity due to excess calories; I25.10 Atherosclerotic heart disease of native coronary artery without angina pectoris; K76.0 Fatty (change of) liver, not elsewhere classified; F10.10 Alcohol abuse, uncomplicated; Z82.49 Family history of ischemic heart disease and other diseases of the circulatory system; Z87.891 Personal history of nicotine dependence; Z68.38 Body mass index [BMI] 38.0-38.9, adult
CPT/HCPCS: 36415; 71045; 74176; 76705; 80053; 81001; 82962; 83690; 84484; 85025; 86705; 86709; 86803; 87340; 93005; 94760; 96361; 96374; 96375; C9113; J1650; J1815; J2060; J2405; J3010; J7030; 99285-25; G0378